=== PATIENT | female | born 1950 ===

== ENCOUNTER 2024-10-18 18:08 | Emergency (ER) | payer MEDICARE, OTHER ==
[~2024-10-18] VITALS: Ht 167.6 cm; Wt 158.8 kg
[2024-10-18] MEDS ORDERED: SILVER SULFADIA2011 TOP (18:40)
[2024-10-18] MEDS ORDERED: Methocarbamol750 MG PO (18:40)
[2024-10-18] MEDS ORDERED: Norco 7.5-3251 EACH PO (18:42)
[2024-10-18] MEDS ORDERED: Buspirone HCl15 MG PO (18:42)
[2024-10-18] MEDS ORDERED: OZEMPIC0.25 MG/02 SC (18:43)
[2024-10-18] MEDS ORDERED: IMITREX50 M2 PO (18:44)
[2024-10-18] MEDS ORDERED: Bentyl20 MG PO (18:44)
[2024-10-18] MEDS ORDERED: FAMO20 PO (18:45)
[2024-10-18] MEDS ORDERED: HYDHCL25 PO (18:45)
[2024-10-18] MEDS ORDERED: DESVENLAFAXINE100 M3 PO (18:45)
[2024-10-18] MEDS ORDERED: NYAMYC1513 TOP (18:46)
[2024-10-18] MEDS ORDERED: K-Dur10 MEQ (18:46)
[2024-10-18] MEDS ORDERED: LOPE2C PO (18:47)
[2024-10-18] MEDS ORDERED: PHENA200 PO (18:47)
[2024-10-18] MEDS ORDERED: SENNA LAXATIVE8.6 MG PO (18:48)
[2024-10-18] MEDS ORDERED: ZINC OXIDE57 GM TOP (18:48)
[2024-10-18] MEDS ORDERED: MIRALAX17 GM PO (18:48)
[2024-10-18] MEDS ORDERED: VITAMIN D310 MC4 PO (18:49)
[2024-10-18] MEDS ORDERED: [UNRECOGNIZED DRUG - OTHER] MM (18:49)
[2024-10-18] MEDS ORDERED: Acetaminophen650 M1 PO (18:50)
[2024-10-18] MEDS ORDERED: ALCIS59.15 ML TOP (18:50)
[2024-10-18] MEDS ORDERED: Calcium Carbon500 MG PO (18:51)
[2024-10-18] MEDS ORDERED: Morphine Sulfate 10 MG/ML 1MLSYR IV PRN (20:45)
[2024-10-18 20:58] LABS: BASOPHILS ABSOLUTE AUTO 0.03 K/mm3 (0.00-0.23); BASOPHILS PERCENT AUTO 0 % (0-2); EOSINOPHILS ABSOLUTE AUTO 0.39 K/mm3 (0.00-0.68); EOSINOPHILS PERCENT AUTO 4 % (0-6); Hematocrit 28.4 % (33.0-51.0); Hemoglobin 8.5 g/dL (11.5-16.0); IMMATURE GRAN ABSOLUTE AUTO 0.08 K/mm3 (0.00-0.10); IMMATURE GRAN PERCENT AUTO 1 % (0-1); LYMPHOCYTES ABSOLUTE AUTO 1.89 K/mm3 (0.84-5.20); LYMPHOCYTES PERCENT AUTO 18 % (21-46); MONOCYTES ABSOLUTE AUTO 0.98 K/mm3 (0.16-1.47); MONOCYTES PERCENT AUTO 9 % (4-13); Mean Corpuscular HGB 22.7 pg (26.0-34.0); Mean Corpuscular HGB Conc 29.9 g/dL (31.5-36.5); Mean Corpuscular Volume 76 fL (80-100); Mean Platelet Volume 8.8 fL (9.1-12.4); NEUTROPHILS ABSOLUTE AUTO 7.21 K/mm3 (1.96-9.15); NEUTROPHILS PERCENT AUTO 68 % (41-73); Platelet Count 323 K/mm3 (150-400); RDW Coefficient Variation 17.4 % (11.7-14.2); RDW Standard Deviation 48.4 fL (35.1-46.3); Red Blood Cell Count 3.74 M/mm3 (3.80-5.20); White Blood Cell Count 10.58 K/mm3 (4.00-11.30)
[2024-10-18] MEDS ORDERED: Morphine Sulfate 4 MG/1 ML Injection IV PRN (21:00)
[2024-10-18 21:24] LABS: Albumin, Blood 2.2 g/dL (3.4-5.0); Albumin/Globulin Ratio 0.5 (0.8-1.8); Bilirubin, Total 0.1 mg/dL (0.1-1.0); Bun/Creatinine Ratio 15.4 (12.0-20.0); Creatinine, Blood 0.84 mg/dL (0.40-1.00); Globulin, Blood 4.7 g/dL (2.2-4.0); Magnesium, Blood 1.7 mg/dL (1.6-2.4); Potassium, Blood 4.5 mmol/L (3.5-5.5); Total Protein, Blood 6.9 g/dL (6.4-8.2)
[2024-10-18] MEDS ORDERED: HyDROXyzine HCl 25 MG Tab PO ONE (21:40)
[2024-10-18] MEDS ORDERED: Methocarbamol 500 MG Tab PO ONE (21:40)
[2024-10-18] MEDS ORDERED: HYDROmorphone HCl/Pf 1MG SYR IV PRN (22:20)
== END 2024-10-19 03:39 | disposition home or self-care (01) ==
LOC: ER 18:08
PROVIDERS: Student in an Organized Health Care Education/Training Program
DX: I89.0 Lymphedema, not elsewhere classified (principal); I87.2 Venous insufficiency (chronic) (peripheral); E66.01 Morbid (severe) obesity due to excess calories; Z79.899 Other long term (current) drug therapy; Z88.0 Allergy status to penicillin; Z88.6 Allergy status to analgesic agent; Z88.1 Allergy status to other antibiotic agents; Z88.8 Allergy status to other drugs, medicaments and biological substances
CPT/HCPCS: 71045; 80053; 83735; 83880; 85025; 93005; 93010; 96374; 96375; 96376; 99284-25; A9270; J1171; J2270

== ENCOUNTER → 2025-01-18 | Outpatient (CLI) | payer MEDICARE, OTHER ==
[~2025-01-18] MED LIST: ALCIS59.15 ML TOP; Acetaminophen650 M1 PO; Bentyl20 MG PO; Buspirone HCl15 MG PO; Calcium Carbon500 MG PO; DESVENLAFAXINE100 M3 PO; FAMO20 PO; HYDHCL25 PO; IMITREX50 M2 PO; K-Dur10 MEQ; LOPE2C PO; MIRALAX17 GM PO; Methocarbamol750 MG PO; NYAMYC1513 TOP; Norco 7.5-3251 EACH PO; OZEMPIC0.25 MG/02 SC; PHENA200 PO; SENNA LAXATIVE8.6 MG PO; SILVER SULFADIA2011 TOP; VITAMIN D310 MC4 PO; ZINC OXIDE57 GM TOP; [UNRECOGNIZED DRUG - OTHER] MM
[2025-01-18 17:14] LABS: BASOPHILS ABSOLUTE AUTO 0.02 K/mm3 (0.00-0.23); BASOPHILS PERCENT AUTO 0 % (0-2); EOSINOPHILS PERCENT AUTO 6 % (0-6); Hematocrit 27.3 % (33.0-51.0); Hemoglobin 7.8 g/dL (11.5-16.0); IMMATURE GRAN ABSOLUTE AUTO 0.02 K/mm3 (0.00-0.10); IMMATURE GRAN PERCENT AUTO 0 % (0-1); LYMPHOCYTES PERCENT AUTO 25 % (21-46); MONOCYTES ABSOLUTE AUTO 0.52 K/mm3 (0.16-1.47); MONOCYTES PERCENT AUTO 7 % (4-13); Mean Corpuscular HGB 20.8 pg (26.0-34.0); Mean Corpuscular HGB Conc 28.6 g/dL (31.5-36.5); Mean Corpuscular Volume 73 fL (80-100); Mean Platelet Volume 9.5 fL (9.1-12.4); NEUTROPHILS ABSOLUTE AUTO 4.41 K/mm3 (1.96-9.15); NEUTROPHILS PERCENT AUTO 61 % (41-73); Platelet Count 358 K/mm3 (150-400); RDW Coefficient Variation 18.2 % (11.7-14.2); RDW Standard Deviation 48.1 fL (35.1-46.3); Red Blood Cell Count 3.75 M/mm3 (3.80-5.20); White Blood Cell Count 7.17 K/mm3 (4.00-11.30)
[2025-01-18 17:41] LABS: Alanine Aminotransfer (ALT/SGP 13 U/L (12-78); Albumin, Blood 2.6 g/dL (3.4-5.0); Albumin/Globulin Ratio 0.6 (0.8-1.8); Alk Phos 70 U/L (50-136); Aspartate Aminotrans (AST/SGOT 7 U/L (12-37); Bilirubin, Total 0.2 mg/dL (0.1-1.0); Blood Urea Nitrogen 22 mg/dL (8-24); Bun/Creatinine Ratio 21.2 (12.0-20.0); CHOL/HDL RATIO 2.6; CO2, Blood 32 mmol/L (21-32); Calcium, Blood 9.3 mg/dL (8.5-10.1); Cholesterol 126 mg/dL (50-200); Creatinine, Blood 1.04 mg/dL (0.40-1.00); Globulin, Blood 4.3 g/dL (2.2-4.0); Glomerular Filtration Rate 57 (60-); Glucose, Blood 114 mg/dL (70-99); HDL Cholesterol 48 mg/dL (>39); LDL/HDL RATIO 1.2; Low Density Lipoprotein Chol 56 mg/dL (0-110); Magnesium, Blood 1.5 mg/dL (1.6-2.4); Total Protein, Blood 6.9 g/dL (6.4-8.2); Triglycerides 112 mg/dL (30-160); Very Low Density Lipoprot Chol 22 mg/dL (6-32)
[2025-01-18 17:42] LABS: Chloride, Blood 104 mmol/L (98-108); Potassium, Blood 3.6 mmol/L (3.5-5.5); Sodium, Blood 140 mmol/L (136-145)
[2025-01-18 18:00] LABS: Anion Gap 8 mmol/L (3-11)
== END ==
LOC: LAB 15:45 → LAB SHORT 15:45
PROVIDERS: Family Medicine
DX: E11.9 Type 2 diabetes mellitus without complications (principal); I50.20 Unspecified systolic (congestive) heart failure
CPT/HCPCS: 80053; 80061; 82306; 83036; 83735; 84443; 85025